=== PATIENT | female | born 1980 | race Caucasian/White ===

== ENCOUNTER 2018-06-29 12:49 | Emergency (ER) | payer MEDICAID, SELFPAY ==
[2018-06-29 12:50] VITALS: BP 122/89; PULSE 86; RESP 15; TEMP 36.4; O2SAT 98; BMI 22.6
--- NOTE | 2018-06-29 13:15 | US_ITS ---
STUDY: FIRST TRIMESTER OBSTETRICAL ULTRASOUND REASON FOR EXAM: Female, 37 years old. . Cramping. LMP: 04/27/2018 TECHNIQUE: Transvaginal PRIOR ULTRASOUND: None. FINDINGS: There is visualization of a single gestational sac in a normal intrauterine position. There is a visualized yolk sac. There is visualization of an embryo with no cardiac activity, consistent with intrauterine demise. The crown-rump length (CRL) measures 1.5 cm, indicating an estimated gestational age (EGA) of 7 weeks, 3 days. The uterus measures 9.8 x 6.0 x 4.9 cm. There is no demonstrated uterine fibroid. The cervix is closed. The right ovary measures 2.9 x 1.6 x 1.5 cm. There is no right ovarian cyst. There is no visualized right adnexal mass or complex lesion. The left ovary measures 2.7 x 2.5 x 1.9 cm. There is no left ovarian cyst. There is no visualized left adnexal mass or complex lesion. There is no fluid in the cul de sac. US/Transvaginal w/Preg US IMPRESSION: Findings consistent with demise. Electronically Signed: Hunter Nika, at 15:21 EDT Tel , Service support ,
--- NOTE | 2018-06-29 13:45 | ED.VISSUMM ---
- ER Visit Summary Date of Service: 06/29/18 Chief Complaint: Vaginal discharge History of Present Illness: The patient is a 37 F who is 7 weeks by dates. She has had 2+ home test. She does not have an compliance representative. She is G3, P1. She has 1 prior spontaneous . She complains of 4 days of mild pelvic cramping and brown discharge. She also complains of some diarrhea. No fevers chest pain shortness of breath. No vomiting. Physical Examination: Afebrile vitals normal Moist mucous membranes Heart regular rate and rhythm Lungs clear Abdomen soft nontender nondistended Alert Patient anxious Test Results: CBC BMP urinalysis unremarkable. Quantitative hCG 25,229. Blood type is O+. Pelvic ultrasound shows a fetus at 7 weeks and 6 days by Hadlock measurements. There is no cardiac activity. Emergency Department Course and Treatment: Work-up as above shows demise. Patient's pain is only mild and her bleeding is mild. I have paged PROGRAM RESEARCH SPECIALIST communications attendant as the patient does not have an compliance representative however have not yet heard back. Patient signed out to the oncoming physician. I anticipate discharge with close follow-up. Treatment Plan: [] Disposition: [] Impression: demise This note was generated with [employer] dictation software. It may contain incorrect words, spelling, and punctuation that were not noted in review of the chart prior to signing ED Disposition - Plan for ED Patient: Referrals: Jeimy Aguilar MD [Primary Care Provider] -
[2018-06-29 13:48] LABS: Anion Gap 7 (5-15); BUN 9 mg/dL (7-18); BUN/Creat Ratio 11.3 RATIO (10-20); Calcium,Total 9.5 mg/dL (8.5-10.1); Chloride 106 mmol/L (98-107); EST Glomerular Filtration Rate 85 mL/min (>60); Est Glom Filt Rate - Afr Amer 103 mL/min (>60); Estimated Creatinine Clearance 88.38 ml/min; Glucose 110 mg/dL (74-106); Potassium 3.5 mmol/L (3.5-5.1); Sodium Level 140 mmol/L (136-145)
[2018-06-29 13:59] LABS: Absolute Lymphocyte Count 2.34 X10^3/ul (0.83-4.51); Absolute Neutrophil Count 5.8 X10^3/uL (2.0-7.7); Basophil# 0.02 X10^3/uL; Basophil% 0.2 % (0-1); Eosinophil# 1.14 X10^3/uL; Eosinophils% 11.7 % (0-5); Hematocrit 39.8 % (37-47); Hemoglobin 13.2 g/dl (12.0-15.0); Lymphocyte # 2.34 X10^3/ul (4.0); Mean Corp Hgb Conc 33.2 g/gl (32-36); Mean Corpuscular Hgb 30.6 pg (27.0-32.0); Mean Corpuscular Volume 92.3 fL (81-99); Mean Platelet Vol. 10.8 fl (6.2-12.0); Monocyte# 0.45 X10^3/uL; Monocyte% 4.6 % (0-10); Neutrophil # 5.77 X10^3/uL (2.7-7.7); Neutrophil % 59.3 % (47-70); Platelet Count 211 K/mm3 (150-450); RBC Distribution Width SD 47.4 fl (35.1-43.9); Red Blood Count 4.31 M/mm3 (4.2-5.4); White Blood Count 9.7 K/mm3 (4.4-11.0)
[2018-06-29 14:05] LABS: POSITIVE COUNT NO; POSITIVE DIFFERENTIAL NO; POSITIVE MORPHOLOGY NO
[2018-06-29 14:10] LABS: Bacteria 0 SEEN /hpf (None Seen); Mucous, Urine 0 SEEN /hpf (<or=2+); Red Blood Cells-Urine 0 SEEN /hpf (0-5); White Blood Cells 0 SEEN /hpf (0-5)
[2018-06-29 14:11] LABS: Color, Urine Yellow (Yellow); Glucose, Dipstick Normal (Normal); Ketone-Dipstick Negative (Negative); Leukocyte Esterase-Dipstick Negative /ul (Negative); Nitrite-Dipstick Negative (Negative); Occult Blood-Urine Negative /ul (Negative); Protein-Dipstick Negative (Negative); Specific Gravity, Urine 1.015 (1.002-1.030); Urine Bilirubin Dipstick Negative (Negative); Urine Clarity Clear (Clear); Urine Urobilinogen Normal (Normal)
[2018-06-29 14:18] LABS: Squamous Epithelial Cells - UA 0-5 SEEN /hpf (5-10)
[2018-06-29 14:54] VITALS: BP 149/74; PULSE 70; RESP 16; O2SAT 99
--- NOTE | 2018-06-29 15:48 | ED.RN ---
pt ambulates out of dept. states she is going to smoke.
--- NOTE | 2018-06-29 15:53 | ED.DEP ---
ED Disposition - Plan for ED Patient: Instructions: ED Miscarriage Inevitable Referrals: Jeimy Aguilar MD [Primary Care Provider] - Soumya Galindo MD [STAFF PHYSICIAN] -
--- NOTE | 2018-06-29 16:01 | ED.RN ---
PT AND ALL OF BELONGINGS ARE OUT OF ROOM.
== END 2018-06-29 16:02 | disposition home or self-care (01) ==
PROVIDERS: Emergency Provider Emergency Medicine; Family Provider Internal Medicine; PCP Internal Medicine
DX: O02.1 Missed abortion (principal); R19.7 Diarrhea, unspecified; F41.9 Anxiety disorder, unspecified; Z72.0 Tobacco use; Z79.899 Other long term (current) drug therapy
CPT/HCPCS: 36415; 76817; 80048; 81001; 84702; 85025; 86900; 99283

== ENCOUNTER 2018-07-06 22:13 | Emergency (ER) | payer MEDICAID, SELFPAY ==
[2018-07-06 22:14] VITALS: BP 119/72; PULSE 85; RESP 18; TEMP 36.9; O2SAT 100; BMI 20.5
--- NOTE | 2018-07-06 23:16 | US_ITS ---
STUDY: FIRST TRIMESTER OBSTETRICAL ULTRASOUND REASON FOR EXAM: Female, 37 years old. Cramping and spotting LMP: 05/28/2018 TECHNIQUE: Transvaginal TECHNICAL QUALITY: Adequate. PRIOR ULTRASOUND: 06/29/2018 FINDINGS: There is a nonviable intrauterine currently measuring 7 weeks and 5 days. Uterus and ovaries are unremarkable. There is a 1.5 cm cyst in the LEFT ovary. There is NO free fluid. There is debris in the urinary bladder. US/Transvaginal w/Preg US IMPRESSION: Nonviable as described. Electronically Signed: Christopher Stuart MD at 0:26 EDT , Service support ,
[2018-07-07 00:07] LABS: Absolute Lymphocyte Count 1.59 X10^3/ul (0.83-4.51); Absolute Neutrophil Count 3.7 X10^3/uL (2.0-7.7); Basophil# 0.02 X10^3/uL; Basophil% 0.3 % (0-1); Eosinophils% 9.2 % (0-5); Hematocrit 41.4 % (37-47); Lymphocyte # 1.59 X10^3/ul (4.0); Lymphocyte % 24.3 % (19-41); Mean Corp Hgb Conc 33.8 g/gl (32-36); Mean Corpuscular Hgb 30.6 pg (27.0-32.0); Mean Corpuscular Volume 90.4 fL (81-99); Mean Platelet Vol. 10.4 fl (6.2-12.0); Monocyte% 9.2 % (0-10); Neutrophil # 3.71 X10^3/uL (2.7-7.7); Neutrophil % 56.8 % (47-70); Platelet Count 210 K/mm3 (150-450); RBC Distribution Width CV 13.6 % (11.6-14.6); RBC Distribution Width SD 44.7 fl (35.1-43.9); Red Blood Count 4.58 M/mm3 (4.2-5.4); White Blood Count 6.5 K/mm3 (4.4-11.0)
[2018-07-07 00:09] LABS: POSITIVE COUNT NO; POSITIVE DIFFERENTIAL NO; POSITIVE MORPHOLOGY NO
[2018-07-07 00:18] LABS: Mucous, Urine 0 SEEN /hpf (<or=2+)
[2018-07-07 00:19] LABS: Color, Urine Yellow (Yellow); Glucose, Dipstick Normal (Normal); Ketone-Dipstick 5 mg/dl (Negative); Leukocyte Esterase-Dipstick 25 /ul (Negative); Nitrite-Dipstick Negative (Negative); Occult Blood-Urine 150 /ul (Negative); Protein-Dipstick 15 mg/dl (Negative); Specific Gravity, Urine 1.025 (1.002-1.030); Urine Clarity Clear (Clear); Urine Urobilinogen Normal (Normal)
[2018-07-07 00:22] LABS: Urine Bilirubin Dipstick 1 mg/dL (Negative)
[2018-07-07 00:26] LABS: ALB/GLOB Ratio 1.1 RATIO (0.9-2.4); AST(SGOT) 13 U/L (15-37); Alanine Aminotransfer ALT/SGPT 22 U/L (13-56); Albumin, Serum 3.9 g/dL (3.2-5.0); Alkaline Phosphatase 67 U/L (45-117); Anion Gap 6 (5-15); BUN 12 mg/dL (7-18); BUN/Creat Ratio 15.9 RATIO (10-20); Calcium,Total 9.2 mg/dL (8.5-10.1); Chloride 107 mmol/L (98-107); Creatinine, Serum 0.76 mg/dL (0.55-1.02); EST Glomerular Filtration Rate 90 mL/min (>60); Est Glom Filt Rate - Afr Amer 109 mL/min (>60); Estimated Creatinine Clearance 90.53 ml/min; Globulin 3.5 g/dL (2.2-4.2); Glucose 86 mg/dL (74-106); Potassium 3.4 mmol/L (3.5-5.1); Protein, Total 7.4 g/dL (6.4-8.2); Sodium Level 137 mmol/L (136-145)
[2018-07-07 00:28] LABS: Bacteria RARE /hpf (None Seen); Squamous Epithelial Cells - UA 0-5 SEEN /hpf (5-10); White Blood Cells 0-5 SEEN /hpf (0-5)
[2018-07-07 00:29] LABS: Red Blood Cells-Urine 5-10 SEEN /hpf (0-5)
[2018-07-07 00:46] VITALS: BP 121/69; PULSE 77; RESP 15; O2SAT 100
--- NOTE | 2018-07-07 00:46 | ED.VISSUMM ---
- ER Visit Summary Date of Service: 07/07/18 Chief Complaint: Multiple complaints History of Present Illness: The patient is a 37 F who presents with multiple complaints. I saw her about a week ago. At that time she was diagnosed with demise. She followed up with WARRANTY ADMINISTRATOR. She states she was given a prescription but she did not take it. She was proceeding with expectant management with possible plan for suction D&C. She complains of headache, muscle aches, constipation, pelvic pain, nausea vomiting, shortness of breath, sweats, fever of 102.2. She also complains of feeling very thirsty. She is concerned that her eyes and skin are turning yellow. She is concerned because she lives with someone who has hepatitis C and states that they have shared some jewelry and make-up. Physical Examination: Afebrile vitals are normal Bizarre affect, anxious Heart regular rate and rhythm Lungs clear Abdomen soft Moist mucous membranes Alert Test Results: CBC CMP unremarkable. Urinalysis shows blood otherwise normal. Pelvic ultrasound shows a nonviable . Emergency Department Course and Treatment: Work-up as above unremarkable. I did speak to Dr. Garnica on-call for obstetrics who from the standpoint feels she is okay to follow-up as an outpatient. In regards to her multiple other complaints she has a benign abdominal exam here. She has unremarkable laboratory studies. I am not concerned for acute serious life-threatening or surgical pathology. Patient to follow-up as an outpatient. She was discharged. Treatment Plan: [] Disposition: Discharge Impression: Fever demise This note was generated with [employer] dictation software. It may contain incorrect words, spelling, and punctuation that were not noted in review of the chart prior to signing ED Disposition - Plan for ED Patient: Referrals: Jeimy Aguilar MD [Primary Care Provider] -
--- NOTE | 2018-07-07 00:49 | ED.DCSUM_ITS ---
- ER Visit Summary Date of Service: 07/07/18 Chief Complaint: Multiple complaints History of Present Illness: The patient is a 37 F who presents with multiple complaints. I saw her about a week ago. At that time she was diagnosed with demise. She followed up with SHIPPING RECEIVING MANAGER. She states she was given a prescription but she did not take it. She was proceeding with expectant management with possible plan for suction D&C. She complains of headache, muscle aches, constipation, pelvic pain, nausea vomiting, shortness of breath, sweats, fever of 102.2. She also complains of feeling very thirsty. She is concerned that her eyes and skin are turning yellow. She is concerned because she lives with someone who has hepatitis C and states that they have shared some jewelry and make-up. Physical Examination: Afebrile vitals are normal Bizarre affect, anxious Heart regular rate and rhythm Lungs clear Abdomen soft Moist mucous membranes Alert Test Results: CBC CMP unremarkable. Urinalysis shows blood otherwise normal. Pelvic ultrasound shows a nonviable . Emergency Department Course and Treatment: Work-up as above unremarkable. I did speak to Dr. Garnica on-call for obstetrics who from the standpoint feels she is okay to follow-up as an outpatient. In regards to her multiple other complaints she has a benign abdominal exam here. She has unremarkable laboratory studies. I am not concerned for acute serious life-threatening or surgical pathology. Patient to follow-up as an outpatient. She was discharged. Treatment Plan: [] Disposition: Discharge Impression: Fever demise This note was generated with [employer] dictation software. It may contain incorrect words, spelling, and punctuation that were not noted in review of the chart prior to signing ED Disposition - Plan for ED Patient: Referrals: Jeimy Aguilar MD [Primary Care Provider] -
--- NOTE | 2018-07-07 00:49 | ED.DEP ---
ED Disposition - Plan for ED Patient: Instructions: ED Miscarriage Inevitable, ED Fever Unconf Cause Referrals: Jeimy Aguilar MD [Primary Care Provider] - Soumya Galindo MD [STAFF PHYSICIAN] -
[2018-07-07 00:50] LABS: hCG Titer Quant., Serum 12428 mIU/mL (1-3)
[2018-07-07 01:03] VITALS: BP 121/69; PULSE 77; RESP 15; O2SAT 100
== END 2018-07-07 01:04 | disposition home or self-care (01) ==
LOC: ED 07-07 00:07
PROVIDERS: Emergency Provider Emergency Medicine; Family Provider Internal Medicine; PCP Internal Medicine
DX: R50.9 Fever, unspecified (principal); O02.1 Missed abortion; R11.2 Nausea with vomiting, unspecified; R51 Headache; R06.02 Shortness of breath; K59.00 Constipation, unspecified; Z72.0 Tobacco use
CPT/HCPCS: 76817; 80053; 81001; 84702; 85025; 99282; A4216

== ENCOUNTER 2018-09-04 00:46 | Emergency (ER) | payer MEDICAID, SELFPAY ==
[2018-09-04 00:47] VITALS: BP 136/96; PULSE 72; RESP 16; TEMP 36.6; O2SAT 99; BMI 19.4
--- NOTE | 2018-09-04 01:02 | EKG12_ITS ---
Test Reason : CP Blood Pressure : / mmHG Vent. Rate : 066 BPM Atrial Rate : 066 BPM P-R Int : 120 ms QRS Dur : 098 ms QT Int : 340 ms P-R-T Axes : 082 070 028 degrees QTc Int : 356 ms Normal sinus rhythm Normal ECG Confirmed by WOLFGANG WEBB ([id number]), editorial director QING FARLEY ([id number]) on 09/06/2018 1:49:48 PM Referred By: SELINA Confirmed By:WOLFGANG WEBB
--- NOTE | 2018-09-04 01:04 | US_ITS ---
STUDY: FIRST TRIMESTER OBSTETRICAL ULTRASOUND REASON FOR EXAM: Female, 37 years old. Vaginal bleeding after miscarriage LMP: 05/28/2018 TECHNIQUE: Transvaginal TECHNICAL QUALITY: Adequate. PRIOR ULTRASOUND: None. FINDINGS: There is no demonstrated intrauterine gestational sac. The uterus measures 8 x 5 x 4.2 cm. There is no demonstrated uterine fibroid. The cervix is closed. The endometrial stripe is thickened measures 16mm suggesting retained gestational products. The right ovary measures 2.7 x 3.5 x 1.7 cm. There is no right ovarian cyst. There is no visualized right adnexal mass or complex lesion. The left ovary measures 4.1 x 2.9 x 2.6 cm. There is no left ovarian cyst. There is no visualized left adnexal mass or complex lesion. There is no fluid in the cul de sac. US/Transvaginal w/Preg US IMPRESSION: The endometrial stripe is thickened measures 16mm suggesting retained gestational products. Electronically Signed: Blas Savage, at 3:32 EDT Tel , Service support ,
--- NOTE | 2018-09-04 01:05 | ED.RN ---
no old ekgs
[2018-09-04] MEDS: proMETHazine 25 MG Tablet 12.5 MG PO (01:14)
[2018-09-04 01:16] LABS: Hemoglobin 13.2 g/dl (12.0-15.0); Mean Corp Hgb Conc 33.8 g/gl (32-36); Mean Corpuscular Hgb 30.3 pg (27.0-32.0); Mean Corpuscular Volume 89.4 fL (81-99); Mean Platelet Vol. 10.2 fl (6.2-12.0); Platelet Count 264 K/mm3 (150-450); RBC Distribution Width SD 42.3 fl (35.1-43.9); Red Blood Count 4.36 M/mm3 (4.2-5.4); Scan Indicated on CBC? Y/N NO; White Blood Count 9.8 K/mm3 (4.4-11.0)
[2018-09-04 01:22] VITALS: BP 107/69; BP 119/65; BP 119/70; PULSE 68; PULSE 72; PULSE 86
[2018-09-04 01:33] LABS: hCG Titer Quant., Serum 5 mIU/mL (1-3)
--- NOTE | 2018-09-04 03:40 | ED.DCSUM_ITS ---
- ER Visit Summary Date of Service: 09/04/18 Chief Complaint: Vaginal bleeding History of Present Illness: The patient is a 37 F who presents with vaginal bleeding. This is been going on for about 7 weeks. This is the third time I have seen her personally in the emergency department. She was initially di agnosed with a non-viable / demise. She followed up with POLICE DISTRICT SWITCHBOARD OPERATOR and they were planning on expectant management versus possible D&C. She returned and still had active bleeding. She did not want to proceed with D&C at that time she again followed up with POLICE DISTRICT SWITCHBOARD OPERATOR. She states on July 17 she was seen in the office and passed some tissue. She has not followed up since that time but has continued to have heavy bleeding. She denies fevers chest pain shortness of breath. Physical Examination: Afebrile vitals are normal No distress Heart regular rate and rhythm Lungs clear Abdomen soft nontender Alert Test Results: EKG shows normal sinus rhythm at a rate of 66. CBC is normal normal hemoglobin. Quantitative hCG 5. Orthostatic vital signs negative. Pelvic ultrasound shows 16 mm endometrial stripe suggesting retained products. Emergency Department Course and Treatment: Patient underwent the above work-up. She is not hemorrhaging. Her vitals are stable with normal hemoglobin. She has been bleeding for 7 weeks. I do not believe any emergent intervention is necessary. I did speak to Dr. Fritz who is covering for the patient's POLICE DISTRICT SWITCHBOARD OPERATOR. She advised that the patient call the office today. She can be seen in the office later today. The patient understands to return for new or worsening symptoms and was discharged home. Treatment Plan: [] Disposition: Discharge Impression: Retained products of conception This note was generated with [employer] dictation software. It may contain incorrect words, spelling, and punctuation that were not noted in review of the chart prior to signing ED Disposition - Plan for ED Patient: Referrals: Jeimy Aguilar MD [Primary Care Provider] -
--- NOTE | 2018-09-04 03:47 | ED.DEP ---
ED Disposition - Plan for ED Patient: Instructions: MISCARRIAGE (Incomplete) Referrals: Jeimy Aguilar MD [Primary Care Provider] - Soumya Galindo MD [STAFF PHYSICIAN] - Additional Instructions: Call the PAPER BALING MACHINE OPERATOR office to be seen later today.
[2018-09-04 03:55] VITALS: BP 130/85; PULSE 75; RESP 18; O2SAT 100
== END 2018-09-04 03:56 | disposition home or self-care (01) ==
LOC: ED 01:24
PROVIDERS: Emergency Provider Emergency Medicine; Family Provider Internal Medicine; PCP Internal Medicine
DX: O02.1 Missed abortion (principal); R07.9 Chest pain, unspecified; R42 Dizziness and giddiness; K58.9 Irritable bowel syndrome, unspecified
CPT/HCPCS: 76817; 84702; 85027; 93005; 99282; 99283; A4216

== ENCOUNTER 2018-09-04 04:59 | Emergency (ER) | payer MEDICAID, SELFPAY ==
[2018-09-04 00:47] VITALS: BMI 19.4
[2018-09-04 04:59] VITALS: BP 125/56; PULSE 64; RESP 18; TEMP 37.4; O2SAT 96; BMI 18.6
--- NOTE | 2018-09-04 05:43 | ED.RN ---
PT WALKED OUT PRIOR TO GETTING SPECULUM EXAM. MD AWARE.
== END 2018-09-04 05:45 | disposition home or self-care (01) ==
LOC: ED 05:47
PROVIDERS: Emergency Provider Emergency Medicine; Family Provider Internal Medicine; PCP Internal Medicine
DX: O02.1 Missed abortion (principal); R07.9 Chest pain, unspecified; R42 Dizziness and giddiness; K58.9 Irritable bowel syndrome, unspecified
CPT/HCPCS: 99282

== ENCOUNTER 2018-09-20 22:10 | Emergency (ER) | payer MEDICAID, SELFPAY ==
[2018-09-20 22:11] VITALS: BP 112/52; PULSE 80; RESP 17; TEMP 36.3; O2SAT 99; BMI 19.0
[2018-09-20 22:58] LABS: Absolute Lymphocyte Count 2.69 X10^3/uL (0.83-4.51); Absolute Neutrophil Count 5.5 X10^3/uL (2.0-7.7); Basophil# 0.02 X10^3/uL; Basophil% 0.2 % (0-1); Eosinophil# 0.21 X10^3/uL; Eosinophils% 2.4 % (0-5); Hematocrit 35.7 % (37-47); Hemoglobin 11.6 g/dL (12.0-15.0); Lymphocyte # 2.69 X10^3/ul (4.0); Lymphocyte % 30.2 % (19-41); Mean Corp Hgb Conc 32.5 g/dL (32-36); Mean Corpuscular Hgb 30.2 pg (27.0-32.0); Mean Platelet Vol. 9.9 fl (6.2-12.0); Monocyte# 0.49 X10^3/uL; Monocyte% 5.5 % (0-10); NRBC Flagged by Analyzer 0 % (0-5); Neutrophil # 5.47 X10^3/uL (2.7-7.7); Neutrophil % 61.4 % (47-70); Platelet Count 212 K/mm3 (150-450); RBC Distribution Width CV 12.4 % (11.6-14.6); RBC Distribution Width SD 42.5 fl (35.1-43.9); Red Blood Count 3.84 M/mm3 (4.2-5.4); White Blood Count 8.9 K/mm3 (4.4-11.0)
[2018-09-20 23:07] LABS: Internal QC Validated? YES +Cl - CLEAR BKGD; Pregnancy, Serum, hCG Quali. NEGATIVE Negative
[2018-09-20 23:11] LABS: Anion Gap 2 (5-15); BUN 7 mg/dL (7-18); BUN/Creat Ratio 7.4 RATIO (10-20); Calcium,Total 8.9 mg/dL (8.5-10.1); Chloride 106 mmol/L (98-107); Creatinine, Serum 0.94 mg/dL (0.55-1.02); EST Glomerular Filtration Rate 70 mL/min (>60); Est Glom Filt Rate - Afr Amer 85 mL/min (>60); Estimated Creatinine Clearance 67.74 ml/min; Glucose 77 mg/dL (74-106); Potassium 3.4 mmol/L (3.5-5.1); Sodium Level 139 mmol/L (136-145)
--- NOTE | 2018-09-20 23:31 | ED.DCSUM_ITS ---
- ER Visit Summary Date of Service: 09/20/18 Chief Complaint: Abdominal pain nausea and vomiting History of Present Illness: The patient is a 37 F who presents with multiple complaints. I have seen her multiple times in the emergency department. Most of these visits were related to a miscarriage and some ongoing vaginal bleeding. At one point a D&C was recommended. She states she did follow-up with CONFIGURATION MANAGEMENT ANALYST on the day of her last emergency department visit and they did not feel the D&C was necessary at this time. She has not had any further vaginal bleeding over the last 6 days. She states that she was looking online about her abdominal pain and is concerned it may be appendicitis. The abdominal pain she is describing today is intermittent and chronic for 2 years. It is located in the right lower abdomen. She also complains of pain radiating down her right leg. She complains of tingling in both legs. She complains of tingling in her shoulders and lightheadedness and dizziness. She complains of constipation. Physical Examination: Afebrile vitals unremarkable Heart regular rate and rhythm Lungs clear Abdomen soft Patient has lower abdominal tenderness although this is worse on the right no guarding no rebound Skin warm and dry Alert Test Results: CBC BMP unremarkable. Urinalysis shows 25 leukocyte esterase otherwise negative. negative. CT the abdomen and pelvis shows a crenated right adnexal cyst 1.95 cm seen on recent ultrasound, appendix is normal. Emergency Department Course and Treatment: Work-up as above does not show any acute process. Patient was reassured. She was advised to follow-up as an outpatient. She understands to return for new or worsening symptoms and was discharged. Treatment Plan: [] Disposition: Discharge Impression: Abdominal pain This note was generated with [employer] dictation software. It may contain incorrect words, spelling, and punctuation that were not noted in review of the chart prior to signing ED Disposition - Plan for ED Patient: Referrals: Jemiy Aguilar MD [Primary Care Provider] -
[2018-09-20] MEDS: Ketorolac 30 MG/ML Syringe IV (23:40)
[2018-09-20 23:42] LABS: Mucous, Urine 0 SEEN /hpf (<or=2+); Red Blood Cells-Urine 0 SEEN /hpf (0-5)
[2018-09-20 23:45] LABS: Color, Urine Yellow (Yellow); Glucose, Dipstick Normal (Normal); Ketone-Dipstick 5 mg/dl (Negative); Leukocyte Esterase-Dipstick 25 /ul (Negative); Nitrite-Dipstick Negative (Negative); Occult Blood-Urine Negative /ul (Negative); Protein-Dipstick 30 mg/dl (Negative); Urine Bilirubin Dipstick Negative (Negative); Urine Clarity Clear (Clear); Urine Urobilinogen Normal (Normal)
[2018-09-20 23:58] LABS: Squamous Epithelial Cells - UA 0-5 SEEN /hpf (5-10); White Blood Cells 0-5 SEEN /hpf (0-5)
[2018-09-20 23:59] LABS: Bacteria RARE /hpf (None Seen)
[2018-09-21 00:13] VITALS: RESP 16
--- NOTE | 2018-09-21 01:00 | CT_ITS ---
HISTORY:RLQ PAIN X 2 YEARS. N/V. Rt fallopian tube removed RLQ PAIN X 2 YEARS. N/V. Rt fallopian tube removed TECHNIQUE: Helically acquired images were obtained of the abdomen and pelvis following IV contrast. A radiation dose optimization technique was used for this scan. IV Contrast dosage and agent:100ml Isovue 300 Oral contrast: Yes COMPARISON: None FINDINGS: # of images incl. paperwork: 379 LOWER CHEST: Lung bases are clear. No cardiomegaly or pericardial effusion observed. LIVER: Homogeneous. No focal mass. GALLBLADDER AND BILIARY TREE: No calcified gallstones. There is no gallbladder distension or wall edema. No intra- or extrahepatic biliary ductal dilation. KIDNEYS AND URETERS: No hydronephrosis. There is a nonobstructing calcifications seen within the superior pole left kidney that measures 4.2 mm. ADRENAL GLANDS: The ureters are not distended SPLEEN: Normal size without focal cystic or solid mass. PANCREAS: No focal cystic or solid mass. BOWEL: The stomach and small bowel are unremarkable There is no mechanical obstruction There is fluid that is seen within the colon. This can be seen with a diarrheal illness. Incomplete filling of the cecum probably secondary to retained stool The appendix is unremarkable and coronal images 46 through 41 LYMPH NODES: No enlarged mesenteric or retroperitoneal lymph nodes. PERITONEUM: No ascites or free air. No other fluid collection. VESSELS: Aorta is non-dilated. URINARY BLADDER: Incompletely distended, otherwise grossly unremarkable. REPRODUCTIVE ORGANS: There is a crenated right adnexal cyst measures approximately 1.95 cm. This was seen on recent ultrasound of September 04, 2018 ABDOMINAL WALL: No discrete abdominal or pelvic wall hernia observed. BONES: No lytic or blastic abnormality observed. CT/Abdomen/Pelvis WITH Contrast IMPRESSION: Crenated right adnexal cyst measuring approximately 1.95 cm seen on recent ultrasound The appendix is unremarkable Individualized dose optimization techniques were used for this CT. at 0138 Reported and signed by: Judi Woodard DO Electronically Signed: Judi Woodard DO at 1:37 EDT Tel , Service support ,
--- NOTE | 2018-09-21 02:05 | ED.DEP ---
ED Disposition - Plan for ED Patient: Instructions: ABDOMINAL PAIN, Unknown Cause, (Female) Referrals: Jeimy Aguilar MD [Primary Care Provider] -
[2018-09-21 02:20] VITALS: BP 104/68; PULSE 87; RESP 18; O2SAT 97
== END 2018-09-21 02:21 | disposition home or self-care (01) ==
LOC: ED 23:16
PROVIDERS: Emergency Provider Emergency Medicine; Family Provider Internal Medicine; PCP Internal Medicine
DX: R10.31 Right lower quadrant pain (principal); G89.29 Other chronic pain; K59.00 Constipation, unspecified; R11.2 Nausea with vomiting, unspecified; R42 Dizziness and giddiness; K58.9 Irritable bowel syndrome, unspecified; Z72.0 Tobacco use; Z79.899 Other long term (current) drug therapy
CPT/HCPCS: 74177; 80048; 81001; 84703; 85025; 96374; 99283; Q9967; A4216

== ENCOUNTER 2018-09-26 11:13 | Emergency (ER) | payer MEDICAID, SELFPAY ==
[2018-09-26] VITALS (8 sets, daily range): BP systolic 114–119; BP diastolic 73–78; PULSE 67–79; RESP 16–18; TEMP 37.2–37.7; O2SAT 99–100; BMI 18.8
--- NOTE | 2018-09-26 11:35 | CM.ED ---
SOCIAL WORK KRISTEN FROM CRISIS HERE AND WILL ASSESS PATIENT FOR POSSIBLE INPATIENT NEEDS. KIANNA DUMONT, BUSBOY, PHLEBOTOMIST.
[2018-09-26 12:51] LABS: Absolute Lymphocyte Count 1.96 X10^3/uL (0.83-4.51); Absolute Neutrophil Count 4.9 X10^3/uL (2.0-7.7); Basophil# 0.02 X10^3/uL; Basophil% 0.3 % (0-1); Eosinophil# 0.17 X10^3/uL; Eosinophils% 2.3 % (0-5); Hematocrit 36.3 % (37-47); Lymphocyte # 1.96 X10^3/ul (4.0); Lymphocyte % 26.3 % (19-41); Mean Corp Hgb Conc 33.1 g/dL (32-36); Mean Corpuscular Hgb 30.2 pg (27.0-32.0); Mean Corpuscular Volume 91.4 fL (81-99); Mean Platelet Vol. 9.9 fl (6.2-12.0); Monocyte# 0.42 X10^3/uL; Monocyte% 5.6 % (0-10); NRBC Flagged by Analyzer 0 % (0-5); Neutrophil # 4.85 X10^3/uL (2.7-7.7); Neutrophil % 65.1 % (47-70); Platelet Count 182 K/mm3 (150-450); RBC Distribution Width CV 12.5 % (11.6-14.6); RBC Distribution Width SD 42.3 fl (35.1-43.9); Red Blood Count 3.97 M/mm3 (4.2-5.4); White Blood Count 7.5 K/mm3 (4.4-11.0)
[2018-09-26 13:04] LABS: ALB/GLOB Ratio 1.2 RATIO (0.9-2.4); AST(SGOT) 14 U/L (15-37); Alanine Aminotransfer ALT/SGPT 23 U/L (13-56); Albumin, Serum 3.9 g/dL (3.2-5.0); Alkaline Phosphatase 57 U/L (45-117); BUN 7 mg/dL (7-18); BUN/Creat Ratio 10.2 RATIO (10-20); Chloride 112 mmol/L (98-107); Creatinine, Serum 0.69 mg/dL (0.55-1.02); EST Glomerular Filtration Rate 101 mL/min (>60); Est Glom Filt Rate - Afr Amer 122 mL/min (>60); Estimated Creatinine Clearance 94.06 ml/min; Globulin 3.2 g/dL (2.2-4.2); Glucose 83 mg/dL (74-106); Potassium 3.7 mmol/L (3.5-5.1); Protein, Total 7.1 g/dL (6.4-8.2); Sodium Level 139 mmol/L (136-145)
[2018-09-26 13:05] LABS: Anion Gap 2 (5-15)
[2018-09-26 13:12] LABS: Pregnancy, Serum, hCG Quali. NEGATIVE Negative (0-9 Nonpreg)
[2018-09-26 13:19] LABS: Internal QC Validated? YES +Cl - CLEAR BKGD
--- NOTE | 2018-09-26 15:28 | ED.DCSUM_ITS ---
- ER Visit Summary Date of Service: 09/26/18 Chief Complaint: Paranoia History of Present Illness: The patient is a 37 F who was referred from the [facility] center for paranoia. She is worried that someone is going to inject her neck and use her for human trafficking. She denies any suicidal or homicidal ideation. Denies any drug use. Physical Examination: Afebrile and vital signs are unremarkable. Alert and oriented. No acute distress. Patient has delusions and paranoia. Neurologic exam unremarkable. Heart regular. Lungs clear. Test Results: CBC, CMP unremarkable. hCG negative. Alcohol negative. Tox screen is pending. Emergency Department Course and Treatment: Patient had psychiatric precautions. She was evaluated by crisis. Her psychiatrist also called and felt she needed inpatient care. I agree. We are awaiting placement at this time. She is medically cleared for transfer and admission to a psychiatric facility. Treatment Plan: As above Disposition: Pending transfer Impression: 1. Psychosis This note was generated with [employer] dictation software. It may contain incorrect words, spelling, and punctuation that were not noted in review of the chart prior to signing ED Disposition - Plan for ED Patient: Referrals: Jeimy Aguilar MD [Primary Care Provider] -
[2018-09-26 15:29] LABS: Bacteria 0 SEEN /hpf (None Seen); Mucous, Urine 0 SEEN /hpf (<or=2+); Red Blood Cells-Urine 0 SEEN /hpf (0-5)
[2018-09-26 15:51] LABS: Color, Urine Yellow (Yellow); Glucose, Dipstick Normal (Normal); Ketone-Dipstick Negative (Negative); Leukocyte Esterase-Dipstick Negative /ul (Negative); Nitrite-Dipstick Negative (Negative); Occult Blood-Urine Negative /ul (Negative); Protein-Dipstick Negative (Negative); Specific Gravity, Urine 1.015 (1.002-1.030); Urine Bilirubin Dipstick Negative (Negative); Urine Clarity Sl. Cloudy (Clear); Urine Urobilinogen Normal (Normal)
[2018-09-26 16:06] LABS: Squamous Epithelial Cells - UA 0-5 SEEN /hpf (5-10); White Blood Cells 0-5 SEEN /hpf (0-5)
[2018-09-26 16:09] LABS: Amphetamine Urine VISTA NEGATIVE (<1000 ng/mL); Barbiturate Urine VISTA NEGATIVE (< 200 ng/mL); Benzodiazepine Urine VISTA NEGATIVE (< 200 ng/mL); Cocaine Urine VISTA NEGATIVE (< 300 ng/mL); Ecstacy Urine VISTA NEGATIVE (< 500 ng/mL); Methadone Urine VISTA NEGATIVE (< 300 ng/mL); PCP Urine VISTA POSITIVE (< 25 ng/mL); THC Urine VISTA NEGATIVE (< 50 ng/mL); Vista UDS pH Range 6
[2018-09-26] MEDS: LORazepam 1 MG Tablet PO (17:09)
--- NOTE | 2018-09-26 17:11 | NURSING ---
CALLED [facility] FOR TRANSPORT. ETA IS [phone]
--- NOTE | 2018-09-26 17:48 | ED.RN ---
PT HAS BEEN COOPERATIVE DURING TIME OF STAY. BELONGINGS REMOVED FORM ROOM AND PT PLACED IN GOWN. C/O ANXIETY, MEDICATED WITH ATIVAN. VERBALIZES UNDERSTANDING OF TRANSFER.
[2018-09-26] MEDS: Acetaminophen 500 MG Tablet 1000 MG PO (19:05)
== END 2018-09-26 19:55 ==
LOC: ED 11:41
PROVIDERS: Emergency Provider Emergency Medicine; Family Provider Internal Medicine; PCP Internal Medicine
DX: F29 Unspecified psychosis not due to a substance or known physiological condition (principal); K58.9 Irritable bowel syndrome, unspecified; F31.9 Bipolar disorder, unspecified; Z72.0 Tobacco use; Z79.899 Other long term (current) drug therapy
CPT/HCPCS: 36415; 80053; 80307; 80320; 81001; 84703; 85025; 99285; G0480

== ENCOUNTER 2018-12-20 02:31 | Emergency (ER) | payer MEDICAID, SELFPAY ==
[2018-09-26 11:14] VITALS: BMI 18.8
[2018-12-20 02:32] VITALS: BP 126/73; PULSE 79; RESP 16; TEMP 36.8; O2SAT 98; BMI 17.4
--- NOTE | 2018-12-20 02:55 | RAD_ITS ---
STUDY: X-RAY - ABDOMEN/PELVIS REASON FOR EXAM: Female, 38 years old. Constipation. TECHNIQUE: Single AP view of the abdomen / pelvis. COMPARISON: None. FINDINGS: Normal visualized lung bases. There is an abundance of fecal material throughout the colon. The small bowel is unremarkable. There is no demonstrated free abdominal air. The visualized liver, spleen and kidneys are grossly normal in size and morphology. Normal soft tissue structures. Normal visualized osseous structures. RAD/Abdomen Single View (Portable) IMPRESSION: Constipation. Otherwise unremarkable x-ray examination of the abdomen and pelvis. Electronically Signed: Deepa Frances MD at 4:14 EDT , Service support ,
[2018-12-20 03:18] LABS: Bacteria 0 SEEN /hpf (None Seen); Mucous, Urine 0 SEEN /hpf (<or=2+); Red Blood Cells-Urine 0 SEEN /hpf (0-5); White Blood Cells 0 SEEN /hpf (0-5)
[2018-12-20 03:20] LABS: Absolute Lymphocyte Count 2.12 X10^3/uL (0.83-4.51); Absolute Neutrophil Count 2.8 X10^3/uL (2.0-7.7); Basophil# 0.02 X10^3/uL; Basophil% 0.4 % (0-1); Eosinophil# 0.17 X10^3/uL; Eosinophils% 3.1 % (0-5); Hematocrit 38.2 % (37-47); Hemoglobin 12.1 g/dL (12.0-15.0); Lymphocyte # 2.12 X10^3/ul (4.0); Lymphocyte % 38.3 % (19-41); Mean Corp Hgb Conc 31.7 g/dL (32-36); Mean Corpuscular Hgb 28.3 pg (27.0-32.0); Mean Corpuscular Volume 89.3 fL (81-99); Monocyte# 0.44 X10^3/uL; Monocyte% 7.9 % (0-10); NRBC Flagged by Analyzer 0 % (0-5); Neutrophil # 2.78 X10^3/uL (2.7-7.7); Neutrophil % 50.1 % (47-70); Platelet Count 237 K/mm3 (150-450); RBC Distribution Width CV 14.6 % (11.6-14.6); RBC Distribution Width SD 46.4 fl (35.1-43.9); Red Blood Count 4.28 M/mm3 (4.2-5.4); White Blood Count 5.5 K/mm3 (4.4-11.0)
[2018-12-20 03:22] LABS: Color, Urine Yellow (Yellow); Glucose, Dipstick Normal (Normal); Ketone-Dipstick Negative (Negative); Leukocyte Esterase-Dipstick Negative /ul (Negative); Nitrite-Dipstick Negative (Negative); Occult Blood-Urine Negative /ul (Negative); Protein-Dipstick Negative (Negative); Urine Bilirubin Dipstick Negative (Negative); Urine Clarity Clear (Clear); Urine Urobilinogen Normal (Normal)
[2018-12-20 03:29] LABS: Internal QC Validated? YES +Cl - CLEAR BKGD; Pregnancy, Serum, hCG Quali. NEGATIVE Negative
[2018-12-20 03:29] LABS: Squamous Epithelial Cells - UA 0-5 SEEN /hpf (5-10)
[2018-12-20 03:30] LABS: Amphetamine Urine VISTA NEGATIVE (<1000 ng/mL); Barbiturate Urine VISTA NEGATIVE (< 200 ng/mL); Benzodiazepine Urine VISTA NEGATIVE (< 200 ng/mL); Cocaine Urine VISTA NEGATIVE (< 300 ng/mL); Ecstacy Urine VISTA NEGATIVE (< 500 ng/mL); Methadone Urine VISTA NEGATIVE (< 300 ng/mL); PCP Urine VISTA POSITIVE (< 25 ng/mL); THC Urine VISTA NEGATIVE (< 50 ng/mL); Vista UDS pH Range 5
[2018-12-20 03:42] LABS: Alcohol, Blood (Medical)-Serum < 3.0 mg/dL
[2018-12-20 03:45] LABS: ALB/GLOB Ratio 1.2 RATIO (0.9-2.4); AST(SGOT) 12 U/L (15-37); Alanine Aminotransfer ALT/SGPT 25 U/L (13-56); Albumin, Serum 3.9 g/dL (3.2-5.0); Alkaline Phosphatase 61 U/L (45-117); Anion Gap 4 (5-15); BUN 7 mg/dL (7-18); BUN/Creat Ratio 8.9 RATIO (10-20); Calcium,Total 8.7 mg/dL (8.5-10.1); Chloride 107 mmol/L (98-107); Creatinine, Serum 0.79 mg/dL (0.55-1.02); EST Glomerular Filtration Rate 86 mL/min (>60); Est Glom Filt Rate - Afr Amer 104 mL/min (>60); Estimated Creatinine Clearance 75.47 ml/min; Globulin 3.2 g/dL (2.2-4.2); Glucose 79 mg/dL (74-106); Potassium 3.4 mmol/L (3.5-5.1); Protein, Total 7.1 g/dL (6.4-8.2); Sodium Level 141 mmol/L (136-145)
--- NOTE | 2018-12-20 04:20 | ED.DCSUM_ITS ---
- ER Visit Summary Date of Service: 12/20/18 Chief Complaint: Multiple complaints History of Present Illness: The patient is a 38 F with multiple complaints. She says she has blood pressure issues. No history of hypertension. She says the veins on the left side of her body are enlarged. She thinks this is because she might be . She has also been digitally disimpacting her rectum using coconut oil, as she is concerned that her bowels are hardening or blocked. She has numbness over her entire left side of her body. She also has a sore throat and can taste bacteria in her throat. Patient has a history of delusions. She follows with the counseling center. She has been abusing energy drinks, cough medicine. She does smoke but denies any other drug use. Denies any suicidal or homicidal thoughts. Physical Examination: Afebrile and vital signs are unremarkable. Head and neck atraumatic. Heart regular. Lungs clear. Abdomen soft. Skin normal. Test Results: CBC, CMP, urine, , TSH, tox, alcohol all unremarkable except for the tox screen which was positive for PCP. This is likely a false positive from her cough medication. Her x-ray showed constipation but was otherwise unremarkable. Emergency Department Course and Treatment: Patient has a variety of complaints. The more I speak with her, the more complaints she thinks of. All of her complaints have been going on for weeks, months, or years. There is no emergent process. I suspect this symptoms are related to a somatoform disorder and that she has some underlying mental use. She is known to crisis and was hospitalized in August for some paranoid delusions. She is not paranoid today, and she is not unable to care for herself. She is not suicidal or homicidal. Crisis advised that they will be unable to place her. We were able to schedule her for outpatient follow-up tomorrow at 2 PM. Patient will be discharged home. She has a court case tomorrow for her house arrest. Treatment Plan: As above Disposition: Discharge Impression: 1. Somatoform disorder This note was generated with [employer] software. It may contain incorrect words, spelling, and punctuation that were not noted in review of the chart prior to signing ED Disposition - Plan for ED Patient: Referrals: Jeimy Aguilar MD [Primary Care Provider] -
--- NOTE | 2018-12-20 04:25 | ED.DEP ---
ED Disposition - Plan for ED Patient: Instructions: Eating a High Fiber Diet Referrals: Jeimy Aguilar MD [Primary Care Provider] - Additional Instructions: follow up with Counseling center tomorrow at 2pm
[2018-12-20 04:45] VITALS: BP 127/84; PULSE 76; RESP 20; O2SAT 98
--- NOTE | 2018-12-20 04:45 | ED.RN ---
THIS NURSE REVIEWED D/C INSTRUCTIONS WITH PT. PT VERBALIZED UNDERSTANDING OF INSTRUCTIONS. PT DENIES FURTHER NEEDS OR QUESTIONS AT THIS TIME.
== END 2018-12-20 04:46 | disposition home or self-care (01) ==
LOC: ED 03:09
PROVIDERS: Emergency Provider Emergency Medicine; Family Provider Internal Medicine; PCP Internal Medicine
DX: F45.9 Somatoform disorder, unspecified (principal); F22 Delusional disorders; K59.00 Constipation, unspecified; J02.9 Acute pharyngitis, unspecified; F17.200 Nicotine dependence, unspecified, uncomplicated; Z79.899 Other long term (current) drug therapy
CPT/HCPCS: 74018; 80053; 80307; 80320; 81001; 84443; 84703; 85025; 99284; G0480